=== PATIENT | male | born 1945 | race Hispanic/Latino ===

== ENCOUNTER 2017-04-21 11:22 | Observation (INO) | payer MEDICARE, MEDICAID ==
--- NOTE | 2017-04-21 12:27 | C.PDOC ---
History Of Present Illness 71 y/o male with PMHx of Arthritis, Peripheral Neuropathy, BPH, pedal edema, possible sleep apnea and Glaucoma presents to ED with complaint of left lateral rib pain, left elbow pain and bilateral legs swelling for x1 week. Patient states 1 week ago he was sitting on chair and fell asleep and fell landing on left side of body. Patient has been sleeping on chair ever since then because when lying down on bed pain on left side of body is worse but has now seen pedal edema worsen. His legs have really ballooned in size this past one week as a result of sleeping upright in chair. Also c/o dyspnea on exertion. Patient believes he may have sleep apnea. Patient denies Trauma, RAMIREZ, LOC or any other complaints at this time. PMD: Dr. 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 Constitutional: Negative for: Fever Eyes: Negative for: Vision Change Cardiovascular: Negative for: Chest Pain Respiratory: Negative for: Shortness of Breath Gastrointestinal: Negative for: Nausea, Vomiting, Diarrhea Musculoskeletal: Positive for: Arm Pain, Leg Pain Skin: Positive for: Bruising. Negative for: Rash Neurological: Negative for: Weakness, Headache, Dizziness Physical Exam - Physical Exam Appears: Non-toxic, No Acute Distress Skin: Normal Color, Warm Head: Atraumatic, Normacephalic Eye(s): bilateral: Normal Inspection Ear(s): Bilateral: Normal Nose: Normal Oral Mucosa: Moist Throat: Normal Neck: Normal ROM Lymphatic: Deferred Chest: Tenderness (left lateral ribs) Cardiovascular: Rhythm Regular Respiratory: Decreased Breath Sounds (At base), No Rales, No Rhonchi, No Wheezing Gastrointestinal/Abdominal: Normal Exam, Soft, No Tenderness Rectal: Deferred Back: Normal Inspection Extremity: Pedal Edema (Bilateral (pitting)), Swelling (Bilateral Legs), Other ( 20cm Healed scar from previous accident on left leg ) Pulses: Left Dorsalis Pedis: Normal, Right Dorsalis Pedis: Normal Neurological/Psych: Oriented x3, Normal Speech, Normal Motor, Normal Sensation, Normal Reflexes ED Course And Treatment - Laboratory Results Result Diagrams: 04/21/17 13:15 04/21/17 13:15 O2 Sat by Pulse Oximetry: 96 (RA) Pulse Ox Interpretation: Normal Medical Decision Making Medical Decision Making: Impression: Fall, Ribs Fx, acute exacerbation of chronic leg swelling due to sleeping in chair Plan: 1. Blood Work 2. Left Ribs x-ray 2:20 PM--I discussed case with Dr. Jose Manuel Fisher. Because pt w/ dyspnea on exertion and worsening leg swelling and difficulty ambulating, will hospitalize on observation service. Disposition - Disposition Disposition: HOSPITALIZED Disposition Time: 14:18 Condition: FAIR - Clinical Impression Clinical Impression: Dyspnea on exertion, Edema of both lower legs due to peripheral venous insufficiency, Fall, Contusion of rib on left side, Balance problem, Urinary tract infection - Scribe Statement The provider has reviewed the documentation as recorded by the Sheibnahid Bates All medical record entries made by the Sheibnahid were at my direction and personally dictated by me. I have reviewed the chart and agree that the record accurately reflects my personal performance of the history, physical exam, medical decision making, and the department course for this patient. I have also personally directed, reviewed, and agree with the discharge instructions and disposition. Decision To Admit - Pt Status Changed To: Hospital Disposition Of: Observation - . Bed Request Type: Regular Admitting Physician: Jose Manuel Fisher Patient Diagnosis: Dyspnea on exertion, Edema of both lower legs due to peripheral venous insufficiency, Fall, Contusion of rib on left side, Balance problem, Urinary tract infection
[2017-04-21 13:20] LABS: BASO # 0.1 K/uL (0.0-0.2); BASO % 1.7 % (0.0-2.0); EOS # 0.5 K/uL (0.0-0.7); EOS % 6.3 % (0.0-4.0); LYMPH # 1.6 K/uL (1.0-4.3); LYMPH % 22.3 % (20.0-40.0); MEAN CORPUSCULAR HEMOGLOBIN 21.7 pg (27.0-31.0); MEAN CORPUSCULAR HGB CONC 31.5 g/dL (33.0-37.0); MEAN PLATELET VOLUME 9.3 fL (7.2-11.7); MONO # 0.5 K/uL (0.0-0.8); NRBC % 0.1 % (0.0-2.0); RED CELL DISTRIBUTION WIDTH 17.6 % (11.5-14.5); WHITE BLOOD COUNT 7.3 K/uL (4.8-10.8)
[2017-04-21 13:31] LABS: CHLORIDE 99 mmol/L (98-107); SODIUM 138 mmol/L (132-148)
[2017-04-21 13:32] LABS: POTASSIUM 4.9 mmol/L (3.6-5.2)
[2017-04-21 13:34] LABS: ALB/GLOB RATIO 0.9 (1.0-2.1); ALKALINE PHOSPHATASE 93 U/L (38-126); ALT/SGPT 54 U/L (21-72); AST/SGOT 58 U/L (17-59); BLOOD UREA NITROGEN 22 mg/dL (9-20); CALCIUM 9.1 mg/dl (8.6-10.4); CARBON DIOXIDE 26 mmol/L (22-30); GFR AFRICAN-AMERICAN > 60; GLUCOSE,RANDOM 88 mg/dL (75-110); MEAN CELL VOLUME 68.7 fL (80.0-94.0); TOTAL PROTEIN 8.6 g/dL (6.3-8.3)
[2017-04-21 14:26] LABS: RBC URINE 82 /hpf (0-3); URINE BACTERIA RARE (<OCC); URINE BILIRUBIN NEGATIVE (NEGATIVE); URINE BLOOD 3+ (NEGATIVE); URINE COLOR Yellow (YELLOW); URINE GLUCOSE (UA) NORMAL (Normal); URINE KETONE NEGATIVE (NEGATIVE); URINE LEUKOCYTE ESTERASE 3+ Leu/uL (Negative); URINE PROTEIN NEGATIVE (NEGATIVE); URINE UROBILINOGEN NORMAL mg/dL (0.2-1.0); WBC CLUMPS FEW /hpf; WBC URINE 652 /hpf (0-5)
[2017-04-21] MEDS ORDERED: cefTRIAXone IV 1 gm in Dextros 50 ML IV STA (14:32)
--- NOTE | 2017-04-21 15:20 | RAD ---
PROCEDURE: Radiographs of the Chest and Left Ribs. HISTORY: Fell/landed on left lat chest; rib pain COMPARISON: None available. TECHNIQUE: Frontal radiograph of the chest and multiple oblique radiographs of the left ribs were obtained. FINDINGS: LEFT RIBS: No fracture or focal lesion visualized. LUNGS: Clear. PLEURA: No pneumothorax or pleural fluid. CARDIOVASCULAR: Normal sized heart. No pulmonary vascular congestion. OTHER FINDINGS: None. IMPRESSION: Unremarkable radiographs of the chest and left ribs. No left rib fracture.
--- NOTE | 2017-04-21 15:27 | RAD ---
PROCEDURE: Radiographs of the pelvis. HISTORY: Fell and landed on left side of body COMPARISON: None. FINDINGS: BONES: Pelvic Bones: The 2 horizontal screws through the mid sacrum the frontal view and a diagonal left screw is similar to lumbar spine appearance of 05/16/2014 apparently transfixing a prior sacral fracture. Prominent left inferior iliac spurring borders the left diagonal screw Lumbosacral transitional elements - sacralized right lateral L5 transverse process) is re- suggested. Osseous hypertrophic changes at this lumbosacral and left sacroiliac joint are re- suggested Hips: Bilateral superolateral hip joint space narrowing with mild superolateral acetabular spurring and tiny subchondral cystic changes here. No fracture or dislocation JOINTS: Sacroiliac Joints: As above Pubic Symphysis: Minimal sclerotic changes OTHER FINDINGS: Bilateral hemipelvic phleboliths IMPRESSION: Postop changes projecting of the sacrum and left iliac bone similar to the lumbar spine 2014 study. Bilateral hip osteoarthrosis. No hip fracture appreciated Other findings as above
--- NOTE | 2017-04-21 15:28 | RAD ---
PROCEDURE: Radiographs of the left elbow. HISTORY: Fell and landed on left elbow COMPARISON: No prior. FINDINGS: BONES: No fracture seen although the anterior fat pad is noted. Does not appear particularly lifted para JOINTS: Normal. No osteoarthritis. SOFT TISSUES: Posterior soft tissue swelling elbow on posterior forearm with subcutaneous reticulated edema JOINT EFFUSION: None. OTHER FINDINGS: None IMPRESSION: No fracture or dislocation. Posterior elbow proximal forearm soft tissue swelling as above
--- NOTE | 2017-04-21 15:34 | RAD ---
HISTORY: Fell and landed on left lat chest COMPARISON: 08/31/2016 TECHNIQUE: Chest PA and lateral FINDINGS: LUNGS: Linear scar/ atelectasis at both lung bases. No acute infiltrate. PLEURA: No significant pleural effusion identified. No pneumothorax apparent. CARDIOVASCULAR: Normal. OSSEOUS STRUCTURES: No significant abnormalities. VISUALIZED UPPER ABDOMEN: Normal. OTHER FINDINGS: None. IMPRESSION: No acute infiltrate.
[2017-04-21] MEDS ORDERED: cefTRIAXone IV 1 gm in Dextros 50 ML IVPB ONE (15:47)
--- NOTE | 2017-04-21 19:56 | CARD ---
APPROVED REPORT EKG Measurement Heart [id number] <Conclusion> Normal sinus rhythm Left axis deviation Voltage criteria for left ventricular hypertrophy Abnormal ECG
[2017-04-21 20:19] VITALS: RESP 20
[2017-04-21 20:24] LABS: INR 1.2
--- NOTE | 2017-04-21 23:52 | CP.PCM.HP ---
History of Present Illness - History of Present Illness History of Present Illness: cc: pain at chest from fall, increasing swelling of lower extremities, inability to care for self since the fall 71 y/o male with PMHx of increasing shortness of breath, HTN, arthritis, peripheral neuropathy, BPH, pedal edema, possible sleep apnea, presbycusis and glaucoma presents to ED with complaint of painful left lateral ribs, left elbow pain and bilateral leg swelling for x 1 week. Symptoms all started when he fell from the chair he was sitting on after he fell asleep, landing on left side of his body. Pt already had difficulty moving around and since the fall, developed increasing pedal edema. Pt is unable to cook for himself, and relies mainly on Meals on Wheels, which did not help when his legs ballooned and continued to increase in girth with each passing day. Pt emailed me from home on Tuesday night , and I advised him via the same medium to go to the ER, or at least have an outpatient CXR to determine any occult fx to his bones. Patient denied external trauma, headaches that were persistent or increased in strength over time. He also denied loss of consciousness at any time during the fall. , nor LOC at any time duiring the fall. Pt also denies any change in his bowel constitution, headaches, kA, LOC or any other complaints at this time. aside from a slightly throbbing area on the medial side of the left trapezius. I received missives from pt via email almost everyday, but inasmuch as he was unable to care for himself, I started the conversation on possible sub-acute rehab placement until he gets on his feet. Pt agreed to this approach, until h bisenefits are consumed or are enough for him to run away from her family. Present on Admission - Present on Admission Any Indicators Present on Admission: No History of DVT/PE: No History of Uncontrolled Diabetes: No Urinary Catheter: No Decubitus Ulcer Present: No History Surgical Site Infection Following: Orthopedic Procedures, None Review of Systems - Review of Systems Systems not reviewed;Unavailable: Dementia, Altered Mental Status - Constitutional Constitutional: Excessive Sweating, Fatigue, Frequent Falls, Headache, Snoring, Sleep Apnea, Weight Gain, Weakness - EENT Eyes: Blind Spots, Blurred Vision, Decreased Night Vision, Discharge, Itchy Eyes , Photophobia, Spots in Vision, Loss of Vision Ears: Ear Pain, Tinnitus Nose/Mouth/Throat: Nasal Congestion, Nasal Discharge, Nasal Obstruction, Sinus Pressure, Dry Mouth, Halitosis, Hoarsness, Sore Throat - Cardiovascular Cardiovascular: Dyspnea on Exertion, Edema, Leg Edema, Lightheadedness, Palpitations - Respiratory Respiratory: Dyspnea, Dyspnea on Exertion, Wheezing, Snoring, Chest Congestion, Excessive Mucous Production, Pain with Coughing - Genitourinary Genitourinary: absent: As Per HPI, Change in Urinary Stream, Difficulty Urinating, Dysuria, Flank Pain, Hematuria, Pyuria, Nocturia, Urinary Incontinence, Urinary Frequency, Urinary Hesitance, Urinary Urgency, Voiding Freq/Small Amts, Freq UTI, Hx Renal/Bladder Calculi, Hx /Renal Surgery, Bladder Distension, Other - Reproductive: Male Reproductive:Male: As Per HPI Additional comments: no abnormalities seen - Musculoskeletal Musculoskeletal: Abnormal Gait, Arthralgias, Joint Swelling, Limited Range of Motion, Muscle Weakness, Myalgias - Integumentary Integumentary: absent: As Per HPI, Acne, Alopecia, Bleeding Lesions, Change in Hair, Change in Nails, Change in Pigmentation, Changing Lesions, Dry Skin, Erythema, Furuncle, Hirsutism, Lesions, New Lesions, Non-Healing Lesions, Photosensitivity, Pruritus, Rash, Skin Pain, Skin Ulcer, Sores, Striae, Swelling , Unusual Bruising, Wounds, Jaundice, Other - Neurological Neurological: Abnormal Hearing, Frequent Falls, Headaches, Loss of Vision, Memory Loss - Psychiatric Psychiatric: Confusion, Depression, Difficulty Concentrating - Endocrine Endocrine: Heat Intolorance, Increase in Ring/Shoe/Hat Size, Palpitations Past Patient History - Infectious Disease Hx of Infectious Diseases: None - Past Medical History & Family History Past Medical History?: Yes - Past Social History Smoking Status: Never Smoked Chewing Tobacco Use: No Cigar Use: No Alcohol: None Drugs: Denies Home Situation {Lives}: Alone Domestic Violence: Negative - CARDIAC Hx Cardiac Disorders: Yes Hx Congestive Heart Failure: Yes Hx Hypercholesterolemia: Yes Hx Hypertension: Yes - PULMONARY Hx Respiratory Disorders: Yes Hx Bronchitis: Yes Hx Chronic Obstructive Pulmonary Disease (COPD): Yes Hx Emphysema: Yes Hx Sleep Apnea: Yes - NEUROLOGICAL Hx Neurological Disorder: Yes Hx Alzheimer's Disease: Yes Hx Dementia: Yes - HEENT Hx HEENT Problems: Yes Hx Deafness: Yes - RENAL Hx Chronic Kidney Disease: No - ENDOCRINE/METABOLIC Hx Endocrine Disorders: Yes Hx Hypothyroidism: Yes - HEMATOLOGICAL/ONCOLOGICAL Hx Blood Disorders: Yes Hx Anemia: Yes (2ndry to thalasemmia minor) - INTEGUMENTARY Hx Dermatological Problems: No - MUSCULOSKELETAL/RHEUMATOLOGICAL Hx Musculoskeletal Disorders: Yes Hx Falls: Yes - GASTROINTESTINAL Hx Gastrointestinal Disorders: No - GENITOURINARY/GYNECOLOGICAL Hx Genitourinary Disorders: No - PSYCHIATRIC Hx Psychophysiologic Disorder: No Hx Substance Use: No - SURGICAL HISTORY Hx Surgeries: Yes Hx Cholecystectomy: Yes Hx Tonsillectomy: Yes - ANESTHESIA Hx Anesthesia: Yes Hx Anesthesia Reactions: No Meds Allergies/Adverse Reactions: Allergies Allergy/AdvReac Type Severity Reaction Status Date / Time No Known Allergies Allergy Verified 04/21/17 11:33 Physical Exam - Constitutional Appears: No Acute Distress, Confused, Chronically Ill - Head Exam Head Exam: ATRAUMATIC, NORMAL INSPECTION, NORMOCEPHALIC - Eye Exam Eye Exam: Conjunctival injection, Periorbital swelling, Periorbital tenderness, PERRL, Scleral icterus Pupil Exam: NORMAL ACCOMODATION, PERRL - Cardiovascular Exam Cardiovascular Exam: REGULAR RHYTHM, +S1, +S2 - GI/Abdominal Exam GI & Abdominal Exam: Diminished Bowel Sounds, Hypoactive Bowel Sounds, Normal Bowel Sounds, Soft - Rectal Exam Rectal Exam: Deferred - Neurological Exam Neurological exam: Abnormal Gait, CN II-XII Intact, Oriented x3, Reflexes Normal - Psychiatric Exam Psychiatric exam: Anxious, Normal Affect, Normal Mood - Skin Skin Exam: Dry, Intact, Warm Results - Vital Signs Recent Vital Signs: Last Vital Signs Temp 98.0 F 04/21/17 21:00 Pulse 70 04/21/17 21:00 Resp 20 04/21/17 21:00 BP 148/80 04/21/17 21:00 Pulse Ox 95 04/21/17 21:00 - Labs Result Diagrams: 04/22/17 08:04 04/22/17 08:04 Labs: Laboratory Results - last 24 hr 04/21/17 20:08 PT 13.7 H INR 1.2 APTT 33 - EKG Data EKG Interpreted by: Myself EKG shows normal: Sinus rhythm, Dorena (+ LAD) Rate: Normal - EKG Data When Compared to Previous EKG: No Significant Change Interpretation: Acute Conduction Defect, Acute Chamber Hypertrophy Assessment & Plan (1) Balance problem Assessment and Plan: PT and OT evaluation relative to pt's contusion from fall Status: Acute (2) CHF, chronic Assessment and Plan: pro bnp normal, no cxr finding of chf Status: Resolved (3) Contusion of rib on left side Assessment and Plan: psin control to achieve independence Status: Acute (4) Edema of both lower legs due to peripheral venous insufficiency Assessment and Plan: diuresis, with add'l factor of immobility highly contributing to pt's condition Status: Acute (5) Fall Assessment and Plan: pt appears to be overmedicating himself at home Status: Acute (6) Urinary tract infection Status: Acute
[2017-04-22] MEDS: Albuterol 0.083% Inhal Sol (2.5 mg/3 mL) UD INH SCH ×4 (01:00→20:13)
[2017-04-22 08:12] LABS: BASO % 0.7 % (0.0-2.0); EOS # 0.5 K/uL (0.0-0.7); EOS % 6.7 % (0.0-4.0); HEMATOCRIT 35.5 % (35.0-51.0); LYMPH # 1.3 K/uL (1.0-4.3); LYMPH % 18.2 % (20.0-40.0); MEAN CELL VOLUME 69.5 fL (80.0-94.0); MEAN CORPUSCULAR HEMOGLOBIN 21.5 pg (27.0-31.0); MEAN CORPUSCULAR HGB CONC 30.9 g/dL (33.0-37.0); MEAN PLATELET VOLUME 9.4 fL (7.2-11.7); MONO # 0.4 K/uL (0.0-0.8); MONO % 6.1 % (0.0-10.0); NRBC % 0.1 % (0.0-2.0); RED CELL DISTRIBUTION WIDTH 17.6 % (11.5-14.5); WHITE BLOOD COUNT 7.2 K/uL (4.8-10.8)
[2017-04-22 08:27] LABS: CHLORIDE 103 mmol/L (98-107); POTASSIUM 3.8 mmol/L (3.6-5.2); SODIUM 141 mmol/L (132-148)
[2017-04-22 08:29] LABS: AST/SGOT 37 U/L (17-59); BILIRUBIN,TOTAL 0.9 mg/dL (0.2-1.3); CARBON DIOXIDE 28 mmol/L (22-30); GFR AFRICAN-AMERICAN > 60
[2017-04-22 08:30] LABS: ALKALINE PHOSPHATASE 79 U/L (38-126); ALT/SGPT 46 U/L (21-72); BLOOD UREA NITROGEN 21 mg/dL (9-20); CALCIUM 8.8 mg/dl (8.6-10.4); GLUCOSE,RANDOM 116 mg/dL (75-110); PHOSPHOROUS 3.8 mg/dL (2.5-4.5); TOTAL PROTEIN 7.3 g/dL (6.3-8.3)
[2017-04-22] MEDS: Potassium Chloride 20 mEq ER Tab PO SCH (09:40)
[2017-04-22] MEDS ORDERED: Tramadol 25 mg PO PRN (18:05)
--- NOTE | 2017-04-22 20:56 | CP.PCM.PN ---
Subjective - Date & Time of Evaluation Date of Evaluation: 04/22/17 Time of Evaluation: 20:55 - Subjective Subjective: Pt seen and examined at bedside. Pt had been wanting to go home today and says he feels bettter. Pt had lost about 6 lbs since yesterday and is feeling better. PT and OT consult helped teach pt how he should handle the movements in and out of bed and around the apartment so that he did not cause himself as much pain. > Discussed with pt that it would be best for him if he went to subacute rehab for a couple of week, especially since he does not cook for himself and is unable to control salt intake bec he has to depend on Meals on Wheels. But pt says he would recovere better at home with home PT. I told pt he needed more than home PT since he is ambulatory and has not been bedridden at hospital, ne needs more extensive therapy. Discussed plan to do outpatient therapy at a facility near his building. Objective - Vital Signs/Intake and Output Vital Signs (last 24 hours): Temp Pulse Resp BP Pulse Ox 98.2 F 84 20 144/75 94 L 04/22/17 15:00 04/22/17 15:00 04/22/17 15:00 04/22/17 15:01 04/22/17 15:00 Intake and Output: 04/22/17 04/23/17 18:59 06:59 Intake Total 340 Output Total 1000 Balance -660 - Medications Medications: Current Medications Albuterol Sulfate (Albuterol 0.083% Inhal [place] (2.5 Mg/3 Ml) Ud) 2.5 mg INH RQ6 SHAKEEL Last Admin: 04/22/17 20:13 Dose: 2.5 mg Ascorbic Acid (Vitamin C 500 Mg Tab) 500 mg PO DAILY SHAKE[facility] Donepezil HCl (Aricept) 10 mg PO DAILY SHAKEEL Last Admin: 04/22/17 18:07 Dose: 10 mg Finasteride (Proscar) 5 mg PO DAILY SHAKE[facility] Furosemide (Lasix) 40 mg IVP DAILY SHAKEEL Stop: 04/24/17 10:01 Last Admin: 04/22/17 09:40 Dose: 40 mg Gabapentin (Neurontin) 600 mg PO BID SHAKEEL Last Admin: 04/22/17 18:05 Dose: 600 mg Heparin Sodium (Porcine) (Heparin) 5,000 units SC Q12 SHAKEEL Last Admin: 04/22/17 09:36 Dose: 5,000 units Home Med (Ropinirole [Requip]) 2 mg PO DAILY [facility] Latanoprost (Xalatan Opht) 0 ml OD HS [facility] Naproxen (Anaprox) 275 mg PO Q8 [facility] Potassium Chloride (K-Dur 20 Meq Er Tab) 20 meq PO DAILY [facility] Last Admin: 04/22/17 09:40 Dose: 20 meq Tamsulosin HCl (Flomax) 0.4 mg PO DAILY [facility] Tramadol HCl (Ultram) 25 mg PO Q6 PRN PRN Reason: Sedation - Labs Labs: 04/22/17 08:04 04/22/17 08:04 PT 13.7 SECONDS (9.7-12.2) H 04/21/17 20:08 INR 1.2 04/21/17 20:08 APTT 33 SECONDS (21-34) 04/21/17 20:08 - Constitutional Appears: No Acute Distress - Head Exam Head Exam: NORMAL INSPECTION - Eye Exam Eye Exam: Normal appearance - ENT Exam ENT Exam: Normal Exam - Neck Exam Neck Exam: Normal Inspection - Respiratory Exam Respiratory Exam: Clear to Ausculation Bilateral - Cardiovascular Exam Cardiovascular Exam: REGULAR RHYTHM - GI/Abdominal Exam GI & Abdominal Exam: Distended, Soft - Rectal Exam Rectal Exam: Deferred - Back Exam Additional comments: + edema, non-pitting - Neurological Exam Neurological Exam: Alert, CN II-XII Intact, Normal Gait, Oriented x3, Reflexes Normal Neuro motor strength exam: Left Upper Extremity: 3, Right Upper Extremity: 3, Left Lower Extremity: 3, Right Lower Extremity: 3 - Psychiatric Exam Psychiatric exam: Normal Affect, Normal Mood - Skin Skin Exam: Dry, Intact, Normal Color, Warm Assessment and Plan (1) Balance problem Status: Acute (2) Contusion of rib on left side Assessment & Plan: 2ndry to rapid weight gain 2ndry to immobility Status: Acute (3) Edema of both lower legs due to peripheral venous insufficiency Assessment & Plan: taped up chest to minimize movevment Status: Chronic (4) Fall Assessment & Plan: explained to pt cause of edema, happy with his diuresis, continue Status: Acute (5) Urinary tract infection Assessment & Plan: UA nd culture repeat ordered Status: Acute
[2017-04-22] MEDS ORDERED: Latanoprost 2.5 ml Opht Soln OD SCH (22:00)
[2017-04-22] MEDS: Naproxen 275 mg Tab PO SCH (23:09)
[2017-04-23 00:17] VITALS: O2SAT 96
[2017-04-23] MEDS: Albuterol 0.083% Inhal Sol (2.5 mg/3 mL) UD INH SCH ×3 (01:32→13:23)
[2017-04-23] MEDS: Naproxen 275 mg Tab PO SCH (05:35)
[2017-04-23 07:25] LABS: HEMATOCRIT 34.1 % (35.0-51.0); MEAN CELL VOLUME 68.9 fL (80.0-94.0); MEAN CORPUSCULAR HEMOGLOBIN 21.5 pg (27.0-31.0); MEAN CORPUSCULAR HGB CONC 31.2 g/dL (33.0-37.0); MEAN PLATELET VOLUME 9.5 fL (7.2-11.7); RED CELL DISTRIBUTION WIDTH 17.3 % (11.5-14.5); WHITE BLOOD COUNT 5.9 K/uL (4.8-10.8)
[2017-04-23 07:33] LABS: CHLORIDE 103 mmol/L (98-107); POTASSIUM 3.7 mmol/L (3.6-5.2); SODIUM 140 mmol/L (132-148)
[2017-04-23 07:35] LABS: GFR AFRICAN-AMERICAN > 60
[2017-04-23 07:36] LABS: BLOOD UREA NITROGEN 19 mg/dL (9-20); CALCIUM 8.7 mg/dl (8.6-10.4); CARBON DIOXIDE 27 mmol/L (22-30); GLUCOSE,RANDOM 103 mg/dL (75-110)
[2017-04-23 07:37] VITALS: BP 127/72; PULSE 63; TEMP 98.3
[2017-04-23] MEDS ORDERED: ROPINIROLE 2 MG PO SCH (10:00)
[2017-04-23] MEDS: Potassium Chloride 20 mEq ER Tab PO SCH (10:32)
--- NOTE | 2017-04-23 10:45 | VASCLAB ---
PROCEDURE: Left Lower Extremity Venous Duplex Exam. HISTORY: LLE swelling; r/o DVT PRIORS: None. TECHNIQUE: Left common femoral, femoral, popliteal and posterior tibial, peroneal and great saphenous veins were evaluated. Flow was assessed with color Doppler, compressibility, assessment of phasic flow and augmentation response. Report prepared by LOR Feldman, RVT FINDINGS: LEFT: 1. Common Femoral Vein: 1.1. Compressibility - Fully compressible: Thrombus - None : Flow - Phasic: Augmentation -Normal: Reflux - None. 2. Femoral Vein: 2.1. Compressibility - Fully compressible: Thrombus - None: Flow - Phasic: Augmentation -Normal: Reflux - None. 3. Popliteal Vein: 3.1. Compressibility - Fully compressible: Thrombus - None: Flow - Phasic: Augmentation -Normal: Reflux - None. 4. Posterior Tibial Vein: 4.1. Compressibility - Fully compressible: Thrombus - None: Flow - Phasic: Augmentation -Normal: Reflux - None. 5. Peroneal Vein: 5.1. Compressibility - Fully compressible: Thrombus - None: Flow - Phasic: Augmentation -Normal: Reflux - None. 6. Great Saphenous Vein: 6.1. Compressibility - Fully compressible: Thrombus - None: Flow - Phasic: Augmentation - Normal: Reflux - None. OTHER FINDINGS: IMPRESSION: No evidence of deep or superficial vein thrombosis of the left lower extremity with excellent venous flow. Normal valve function noted of the left side. Normal venous flow noted in the right common femoral vein.
--- NOTE | 2017-04-23 12:17 | CP.PCM.DIS ---
Provider - Provider Date of Admission: 04/21/17 14:22 Attending physician: Jose Manuel Fisher MD Primary care physician: Dr. Jose Manuel Fisher Consults: none Time Spent in preparation of Discharge (in minutes): 30 Diagnosis - Discharge Diagnosis (1) Balance problem Status: Acute (2) Contusion of rib on left side Status: Acute (3) Edema of both lower legs due to peripheral venous insufficiency Status: Chronic (4) Fall Status: Acute (5) Urinary tract infection Status: Acute Hospital Course - Lab Results Lab Results: Most Recent Lab Values WBC 5.9 K/uL (4.8-10.8) 04/23/17 07:15 RBC 4.94 Mil/uL (4.40-5.90) 04/23/17 07:15 Hgb 10.6 g/dL (12.0-18.0) L 04/23/17 07:15 Hct 34.1 % (35.0-51.0) L 04/23/17 07:15 MCV 68.9 fL (80.0-94.0) L 04/23/17 07:15 MCH 21.5 pg (27.0-31.0) L 04/23/17 07:15 MCHC 31.2 g/dL (33.0-37.0) L 04/23/17 07:15 RDW 17.3 % (11.5-14.5) H 04/23/17 07:15 Plt Count 126 K/uL (130-400) L 04/23/17 07:15 MPV 9.5 fL (7.2-11.7) 04/23/17 07:15 Neut % (Auto) 68.3 % (50.0-75.0) 04/22/17 08:04 Lymph % (Auto) 18.2 % (20.0-40.0) L 04/22/17 08:04 Cecil % (Auto) 6.1 % (0.0-10.0) 04/22/17 08:04 Eos % (Auto) 6.7 % (0.0-4.0) H 04/22/17 08:04 Baso % (Auto) 0.7 % (0.0-2.0) 04/22/17 08:04 Neut # 4.9 K/uL (1.8-7.0) 04/22/17 08:04 Lymph # 1.3 K/uL (1.0-4.3) 04/22/17 08:04 Cecil # 0.4 K/uL (0.0-0.8) 04/22/17 08:04 Eos # 0.5 K/uL (0.0-0.7) 04/22/17 08:04 Baso # 0.0 K/uL (0.0-0.2) 04/22/17 08:04 Differential Comment 04/21/17 13:15 PT 13.7 SECONDS (9.7-12.2) H 04/21/17 20:08 INR 1.2 04/21/17 20:08 APTT 33 SECONDS (21-34) 04/21/17 20:08 Sodium 140 mmol/L (132-148) 04/23/17 07:11 Potassium 3.7 mmol/L (3.6-5.2) 04/23/17 07:11 Chloride 103 mmol/L (98-107) 04/23/17 07:11 Carbon Dioxide 27 mmol/L (22-30) 04/23/17 07:11 Anion Gap 14 (10-20) 04/23/17 07:11 BUN 19 mg/dL (9-20) 04/23/17 07:11 Creatinine 0.9 MG/DL (0.8-1.5) 04/23/17 07:11 Est GFR ( Amer) > 60 04/23/17 07:11 Est GFR (Non-Af Amer) > 60 04/23/17 07:11 Random Glucose 103 mg/dL (75-110) 04/23/17 07:11 Serum Osmolality 298 mosm/kg (272-300) 04/22/17 08:04 Calcium 8.7 mg/dl (8.6-10.4) 04/23/17 07:11 Phosphorus 3.8 mg/dL (2.5-4.5) 04/22/17 08:04 Magnesium 2.0 mg/dL (1.6-2.3) 04/22/17 08:04 Total Bilirubin 0.9 mg/dL (0.2-1.3) 04/22/17 08:04 AST 37 U/L (17-59) 04/22/17 08:04 ALT 46 U/L (21-72) 04/22/17 08:04 Alkaline Phosphatase 79 U/L (38-126) 04/22/17 08:04 Total Creatine Kinase 272 U/L (55-170) H 04/21/17 13:15 Troponin I < 0.0120 ng/mL (0.00-0.120) 04/21/17 13:15 NT-Pro-B Natriuret Pep 181 pg/mL (0-900) 04/22/17 08:04 Total Protein 7.3 g/dL (6.3-8.3) 04/22/17 08:04 Albumin 3.6 g/dL (3.5-5.0) 04/22/17 08:04 Globulin 3.6 gm/dL (2.2-3.9) 04/22/17 08:04 Albumin/Globulin Ratio 1.0 (1.0-2.1) 04/22/17 08:04 Urine Color Yellow (YELLOW) 04/21/17 14:06 Urine Clarity Hazy (Clear) 04/21/17 14:06 Urine pH 6.0 (5.0-8.0) 04/21/17 14:06 Ur Specific [place] 1.011 (1.003-1.030) 04/21/17 14:06 Urine Protein Negative mg/dL (NEGATIVE) 04/21/17 14:06 Urine Glucose (UA) Normal mg/dL (Normal) 04/21/17 14:06 Urine Ketones Negative mg/dL (NEGATIVE) 04/21/17 14:06 Urine Blood 3+ (NEGATIVE) H 04/21/17 14:06 Urine Nitrate Negative (NEGATIVE) 04/21/17 14:06 Urine Bilirubin Negative (NEGATIVE) 04/21/17 14:06 Urine Urobilinogen Normal mg/dL (0.2-1.0) 04/21/17 14:06 Ur Leukocyte Esterase 3+ Adelina/uL (Negative) H 04/21/17 14:06 Urine WBC (Auto) 652 /hpf (0-5) H 04/21/17 14:06 Urine RBC (Auto) 82 /hpf (0-3) H 04/21/17 14:06 Urine WBC Clumps (Auto) Few /hpf (NONE) H 04/21/17 14:06 Ur Squamous Epith Cells < 1 /hpf (0-5) 04/21/17 14:06 Urine Bacteria Rare (<OCC) 04/21/17 14:06 Urine Osmolality 538 mosm/kg (300-1000) 04/22/17 07:12 Blood Type O POSITIVE 04/21/17 13:42 Antibody Screen Negative 04/21/17 13:42 - Hospital Course Hospital Course: zx Pt had fallen about 1.5 weeks ago and this is going on the 2nd week. Pt had been emailing the office complaining of severe pain on the pain site and wanting an a home health aide to help with things around the apt since he cannot cook. In times of great need such as this, it becomes even more difficult around the house. Pt complained of increasing weight making him unable to wa.k, Emails became almost daily that I asked the pt go to the hospital with the intent of placing him at [facility] to increase his chances of staying independent. Pt refused and reiterated he wanted to go home and maybe he can do physical theapy at home (home PT)/ Only then did he agreeand quiet down some. In the meantime, pt's was diureses of a total of 0 9 liters in 2 daysl, with an improvement in pt's sense of well being. Ok'd for pt to go home today on promise that he will pursue outpt PT. Pt discharged stable and with no SOB. - Date & Time of H&P Date of H&P: 04/23/17 Time of H&P: 12:20 Discharge Exam - Head Exam Head Exam: NORMAL INSPECTION - Eye Exam Eye Exam: Normal appearance Pupil Exam: NORMAL ACCOMODATION - ENT Exam ENT Exam: Normal Exam - Neck Exam Neck exam: Normal Inspection - Respiratory Exam Respiratory Exam: Chest Wall Tenderness, Clear to PA & Lateral, NORMAL BREATHING PATTERN - Cardiovascular Exam Cardiovascular Exam: REGULAR RHYTHM - GI/Abdominal Exam GI & Abdominal Exam: Distended - Rectal Exam Rectal Exam: NORMAL INSPECTION - Extremities Exam Extremities exam: normal capillary refill, pedal edema, pedal pulses present - Back Exam Back exam: NORMAL INSPECTION - Neurological Exam Neurological exam: Oriented x3 - Psychiatric Exam Psychiatric exam: Normal Mood - Skin Skin Exam: Dry, Intact, Normal Color, Warm Discharge Plan - Discharge Medications Prescriptions: Naproxen [Anaprox] 275 mg PO Q8 PRN #100 tab PRN Reason: Pain, Moderate (4-7) Donepezil [Aricept] 10 mg PO DAILY PRN #30 PRN Reason: Headache Gabapentin [Neurontin] 600 mg PO BID #60 tab traMADol [Ultram] 25 mg PO Q6 PRN #30 tab PRN Reason: Pain, Severe (8-10) - Follow Up Plan Condition: FAIR Disposition: HOME/ ROUTINE Additional Instructions: Follow up with Dr. Fisher on April 26, at 1015 am. If unable to make this appt, pls call the office on Tuesday at 10 am to reschedule Clinical Quality Measures - CQM - Stroke Antithrombotic Prescribed: Medical Contraindication Present Contranindication/Reason for not providing: Risk for Falling Anticoagulation Prescribed for Atrial Flutter, Atrial Fibrillation and History of:: Not Applicable - CQM - VTE Did patient receive overlap therapy during hosptialization?: No Is patient being discharged on overlap therapy?: No
== END 2017-04-23 15:30 | disposition home or self-care (01) ==
LOC: C.ER 11:22 → C.9E 14:22 → C.3T 20:04
PROVIDERS: ADMIT Family Medicine; ATTEND Family Medicine
DX: I87.2 Venous insufficiency (chronic) (peripheral) (principal); I11.0 Hypertensive heart disease with heart failure; I50.9 Heart failure, unspecified; N39.0 Urinary tract infection, site not specified; N40.0 Benign prostatic hyperplasia without lower urinary tract symptoms; G30.9 Alzheimer's disease, unspecified; S20.212A Contusion of left front wall of thorax, initial encounter; W07.XXXA Fall from chair, initial encounter; F02.80 Dementia in other diseases classified elsewhere, unspecified severity, without behavioral disturbance, psychotic disturbance, mood disturbance, and anxiety
CPT/HCPCS: 36415; 71020; 71100; 72170; 73080; 80048; 80053; 81001; 82550; 83735; 83880; 83930; 83935; 84100; 84484; 85025; 85027; 85610; 85730; 86850; 86900; 93005; 93971; 94640; 94760; 96360; 96374; 97116; 97162; 97166; 97530; 99285; G0378; G8978; G8979; G8987; G8988; J0696; J1644; J1940

== ENCOUNTER 2017-11-24 11:14 | Observation (INO) | payer MEDICARE, MEDICAID ==
--- NOTE | 2017-11-24 12:05 | C.PDOC ---
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 Upon arrival of EMS, patient was found to be hypoxi with rales, lasix was administered in route with improvements. Denies fever, chills, chest pain, palpitations, nausea , vomiting or headache. 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 Constitutional: Positive for: Weakness. Negative for: Fever, Chills Cardiovascular: Negative for: Chest Pain, Palpitations Respiratory: Positive for: Shortness of Breath Gastrointestinal: Negative for: Nausea, Vomiting Neurological: Positive for: Dizziness. Negative for: Headache Physical Exam - Physical Exam Appears: Non-toxic, No Acute Distress Skin: Warm, Dry, No Rash Eye(s): bilateral: Normal Inspection, PERRL, EOMI Oral Mucosa: Moist Cardiovascular: Rhythm Regular, No Murmur Respiratory: No Rales, No Rhonchi, Other ((+) distant breath sounds, bilateral) Gastrointestinal/Abdominal: Normal Exam, Soft, No Tenderness, No Guarding, No Rebound Extremity: Normal ROM, Other ((+) +2 pitting edema, bilateral) Neurological/Psych: Oriented x3, Normal Speech, Normal Motor ED Course And Treatment - Laboratory Results Result Diagrams: 11/24/17 12:06 11/24/17 12:06 ECG: Interpreted By Me, Viewed By Me ECG Rhythm: Sinus Rhythm Interpretation Of ECG: Left axis deviation. Notmal intervals. No ST/T wave abnormalities. Rate From EC (BPM) O2 Sat by Pulse Oximetry: 97 (RA) Pulse Ox Interpretation: Normal Medical Decision Making Medical Decision Making: IMPRESSION: CHF PLAN: * CXR * EKG * Troponin * CBC * CMP * BNP * Urinalysis NOTE: Disposition Discussed With DrPeg: Jose Manuel Fisher Counseled Patient/Family Regarding: Studies Performed, Diagnosis - Disposition Disposition: HOSPITALIZED Disposition Time: 14:26 Condition: FAIR Forms: [facility] (Greenlandic) - Clinical Impression Clinical Impression: Urinary tract infection, Near syncope - Scribe Statement The provider has reviewed the documentation as recorded by the Alejandra Overton Provider Attestation: All medical record entries made by the Scribe were at my direction and personally dictated by me. I have reviewed the chart and agree that the record accurately reflects my personal performance of the history, physical exam, medical decision making, and the department course for this patient. I have also personally directed, reviewed, and agree with the discharge instructions and disposition.
[2017-11-24 12:11] LABS: BASO # 0.1 K/uL (0.0-0.2); EOS # 0.4 K/uL (0.0-0.7); EOS % 4.6 % (0.0-4.0); HEMOGLOBIN 12.1 g/dL (12.0-18.0); LYMPH # 1.8 K/uL (1.0-4.3); LYMPH % 22.7 % (20.0-40.0); MEAN CELL VOLUME 67.9 fL (80.0-94.0); MEAN CORPUSCULAR HEMOGLOBIN 22.4 pg (27.0-31.0); MEAN CORPUSCULAR HGB CONC 33.1 g/dL (33.0-37.0); MEAN PLATELET VOLUME 9.3 fL (7.2-11.7); MONO # 0.5 K/uL (0.0-0.8); MONO % 6.2 % (0.0-10.0); NEUT # 5.1 K/uL (1.8-7.0); NEUT % 65.5 % (50.0-75.0); NRBC % 0.2 % (0.0-2.0); RBC 5.37 Mil/uL (4.40-5.90); RED CELL DISTRIBUTION WIDTH 17.3 % (11.5-14.5); WHITE BLOOD COUNT 7.8 K/uL (4.8-10.8)
[2017-11-24 12:17] LABS: INR 1.2; PROTHROMBIN TIME 13.2 SECONDS (9.7-12.2)
[2017-11-24 12:18] LABS: SQUAMOUS EPITHIAL < 1 /hpf (0-5); URINE BACTERIA RARE (<OCC); URINE BILIRUBIN NEGATIVE (NEGATIVE); URINE BLOOD 2+ (NEGATIVE); URINE CLARITY Hazy (Clear); URINE COLOR Yellow (YELLOW); URINE GLUCOSE (UA) NORMAL (Normal); URINE LEUKOCYTE ESTERASE 3+ Leu/uL (Negative); URINE NITRATE NEGATIVE (NEGATIVE); URINE PROTEIN NEGATIVE (NEGATIVE); URINE UROBILINOGEN NORMAL mg/dL (0.2-1.0)
[2017-11-24 12:22] LABS: ALB/GLOB RATIO 1.1 (1.0-2.1); ALBUMIN 4.2 g/dL (3.5-5.0); ALT/SGPT 31 U/L (21-72); AST/SGOT 27 U/L (17-59); BLOOD UREA NITROGEN 20 mg/dL (9-20); CALCIUM 8.9 mg/dl (8.6-10.4); GFR AFRICAN-AMERICAN > 60; GFR NON-AFRICAN AMERICAN > 60
[2017-11-24 12:34] LABS: B-TYPE NATRIURETIC PEPTIDE 175 pg/mL (0-900)
--- NOTE | 2017-11-24 15:52 | RAD ---
PROCEDURE: CHEST RADIOGRAPH, 1 VIEW HISTORY: SOB COMPARISON: 04/21/2017 FINDINGS: LUNGS: Shallow lung volumes. A linear coalescent opacities lung base previously referenced -subsegmental atelectasis and/or scarring favored PLEURA: No pneumothorax or pleural fluid seen. CARDIOVASCULAR: Cardiomegaly. Central pulmonary venous minimal congestion probable possibly chronic possibly chronic OSSEOUS STRUCTURES: No significant abnormalities. VISUALIZED UPPER ABDOMEN: Normal. OTHER FINDINGS: None. IMPRESSION: Cardiomegaly and minimal central pulmonary venous congestion possibly chronic. No interval infiltrate. Chronic changes left lung base
--- NOTE | 2017-11-24 20:51 | CARD ---
APPROVED REPORT EKG Measurement Heart [id number] <Conclusion> Normal sinus rhythm Left axis deviation Voltage criteria for left ventricular hypertrophy Abnormal ECG
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
[2017-11-25 07:23] LABS: BLOOD UREA NITROGEN 18 mg/dL (9-20); CALCIUM 8.7 mg/dl (8.6-10.4); GFR AFRICAN-AMERICAN > 60; GFR NON-AFRICAN AMERICAN > 60
[2017-11-25 08:10] LABS: HEMOGLOBIN 11.5 g/dL (12.0-18.0); MEAN CELL VOLUME 68.1 fL (80.0-94.0); MEAN CORPUSCULAR HEMOGLOBIN 22.2 pg (27.0-31.0); MEAN CORPUSCULAR HGB CONC 32.6 g/dL (33.0-37.0); MEAN PLATELET VOLUME 9.6 fL (7.2-11.7); RBC 5.16 Mil/uL (4.40-5.90); RED CELL DISTRIBUTION WIDTH 17.7 % (11.5-14.5); WHITE BLOOD COUNT 6.8 K/uL (4.8-10.8)
[2017-11-25] MEDS: Omega-3-Acid Ethyl Esters 1 GM Cap PO SCH (17:50)
[2017-11-25] MEDS ORDERED: TRAVOPROST RIGHTEYE SCH (18:00)
[2017-11-25] MEDS ORDERED: Latanoprost 2.5 ml Opht Soln OD SCH (22:00)
--- NOTE | 2017-11-26 08:49 | CP.PCM.DIS ---
Provider - Provider Date of Admission: 11/24/17 14:24 Attending physician: Jose Manuel Fisher MD Primary care physician: Dr. Jose Manuel Fisher MD Consults: none Time Spent in preparation of Discharge (in minutes): 30 Diagnosis - Discharge Diagnosis (1) Near syncope Status: Acute Priority: Medium Comment: prob 2ndry to hypotension. no bp meds, no lasix for now (2) Hypotension (arterial) Status: Acute Priority: High Comment: 2ndry to excessive diuresis (3) Fall Status: Acute Priority: High Comment: 2ndry to hypotension Hospital Course - Lab Results Lab Results: Micro Results 11/24/17 14:27 Blood Blood Culture - Preliminary NO GROWTH AFTER 24 HOURS 11/24/17 14:00 Blood Blood Culture - Preliminary NO GROWTH AFTER 24 HOURS 11/24/17 Unknown Urine,Clean Catch Urine Culture - Final No Growth (<1,000 CFU/ML) Most Recent Lab Values WBC 6.8 K/uL (4.8-10.8) 11/25/17 06:56 RBC 5.16 Mil/uL (4.40-5.90) 11/25/17 06:56 Hgb 11.5 g/dL (12.0-18.0) L 11/25/17 06:56 Hct 35.2 % (35.0-51.0) 11/25/17 06:56 MCV 68.1 fL (80.0-94.0) L 11/25/17 06:56 MCH 22.2 pg (27.0-31.0) L 11/25/17 06:56 MCHC 32.6 g/dL (33.0-37.0) L 11/25/17 06:56 RDW 17.7 % (11.5-14.5) H 11/25/17 06:56 Plt Count 118 K/uL (130-400) L 11/25/17 06:56 MPV 9.6 fL (7.2-11.7) 11/25/17 06:56 Neut % (Auto) 65.5 % (50.0-75.0) 11/24/17 12:06 Lymph % (Auto) 22.7 % (20.0-40.0) 11/24/17 12:06 [place] % (Auto) 6.2 % (0.0-10.0) 11/24/17 12:06 Eos % (Auto) 4.6 % (0.0-4.0) H 11/24/17 12:06 Baso % (Auto) 1.0 % (0.0-2.0) 11/24/17 12:06 Neut # 5.1 K/uL (1.8-7.0) 11/24/17 12:06 Lymph # 1.8 K/uL (1.0-4.3) 11/24/17 12:06 [place] # 0.5 K/uL (0.0-0.8) 11/24/17 12:06 Eos # 0.4 K/uL (0.0-0.7) 11/24/17 12:06 Baso # 0.1 K/uL (0.0-0.2) 11/24/17 12:06 Differential Comment 11/25/17 06:56 PT 13.2 SECONDS (9.7-12.2) H 11/24/17 12:06 INR 1.2 11/24/17 12:06 APTT 28 SECONDS (21-34) 11/24/17 12:06 D-Dimer, Quantitative < 200 ng/mlDDU (0-243) 11/24/17 14:03 Sodium 134 mmol/L (132-148) 11/25/17 06:56 Potassium 3.9 mmol/L (3.6-5.2) 11/25/17 06:56 Chloride 98 mmol/L (98-107) 11/25/17 06:56 Carbon Dioxide 28 mmol/L (22-30) 11/25/17 06:56 Anion Gap 12 (10-20) 11/25/17 06:56 BUN 18 mg/dL (9-20) 11/25/17 06:56 Creatinine 0.9 mg/dL (0.8-1.5) 11/25/17 06:56 Est GFR ( Amer) > 60 11/25/17 06:56 Est GFR (Non-Af Amer) > 60 11/25/17 06:56 Random Glucose 89 mg/dL (75-110) 11/25/17 06:56 Calcium 8.7 mg/dl (8.6-10.4) 11/25/17 06:56 Total Bilirubin 0.6 mg/dL (0.2-1.3) 11/24/17 12:06 AST 27 U/L (17-59) 11/24/17 12:06 ALT 31 U/L (21-72) 11/24/17 12:06 Alkaline Phosphatase 75 U/L (38-126) 11/24/17 12:06 Troponin I < 0.0120 ng/mL (0.00-0.120) 11/24/17 12:06 NT-Pro-B Natriuret Pep 175 pg/mL (0-900) 11/24/17 12:06 Total Protein 7.9 g/dL (6.3-8.3) 11/24/17 12:06 Albumin 4.2 g/dL (3.5-5.0) 11/24/17 12:06 Globulin 3.7 gm/dL (2.2-3.9) 11/24/17 12:06 Albumin/Globulin Ratio 1.1 (1.0-2.1) 11/24/17 12:06 Urine Color Yellow (YELLOW) 11/24/17 12:06 Urine Clarity Hazy (Clear) 11/24/17 12:06 Urine pH 6.0 (5.0-8.0) 11/24/17 12:06 Ur Specific [place] 1.005 (1.003-1.030) 11/24/17 12:06 Urine Protein Negative mg/dL (NEGATIVE) 11/24/17 12:06 Urine Glucose (UA) Normal mg/dL (Normal) 11/24/17 12:06 Urine Ketones Negative mg/dL (NEGATIVE) 11/24/17 12:06 Urine Blood 2+ (NEGATIVE) H 11/24/17 12:06 Urine Nitrate Negative (NEGATIVE) 11/24/17 12:06 Urine Bilirubin Negative (NEGATIVE) 11/24/17 12:06 Urine Urobilinogen Normal mg/dL (0.2-1.0) 11/24/17 12:06 Ur Leukocyte Esterase 3+ [place]/uL (Negative) H 11/24/17 12:06 Urine WBC (Auto) 538 /hpf (0-5) H 11/24/17 12:06 Urine RBC (Auto) 43 /hpf (0-3) H 11/24/17 12:06 Ur Squamous Epith Cells < 1 /hpf (0-5) 11/24/17 12:06 Urine Bacteria Rare (<OCC) 11/24/17 12:06 - Hospital Course Hospital Course: Pt admitted for near syncope and suspected UTI. Review of pt's llabs and VS showed low b initially, which remained low despite witholding of aniti- hypertneisve meds. There were no repeat episodes of the symptom that prompted admission - Date & Time of H&P Date of H&P: 11/25/17 Time of H&P: 21:30 Discharge Exam - Head Exam Head Exam: NORMAL INSPECTION, NORMOCEPHALIC - Eye Exam Eye Exam: Normal appearance - ENT Exam ENT Exam: Normal Exam - Neck Exam Neck exam: Normal Inspection - Respiratory Exam Respiratory Exam: NORMAL BREATHING PATTERN - Cardiovascular Exam Cardiovascular Exam: REGULAR RHYTHM - GI/Abdominal Exam GI & Abdominal Exam: Normal Bowel Sounds, Unremarkable - Rectal Exam Rectal Exam: Deferred - Extremities Exam Extremities exam: normal inspection, pedal edema - Neurological Exam Neurological exam: Alert, CN II-XII Intact, Normal Gait, Oriented x3, Reflexes Normal - Skin Skin Exam: Dry, Intact, Normal Color, Warm Discharge Plan - Discharge Medications Prescriptions: Furosemide [Lasix] 1 tab PO DAILY #14 tab - Follow Up Plan Condition: FAIR Disposition: HOME/ ROUTINE Patient education suggested?: Yes Additional Instructions: 1. Follow up at the office on Nov 30 at 12:30 pm 2. Bring all your medicines at home in their respective bottles to the office when you come. 3. Weigh yourself everyday. If you gain 3 lbs in 1 day, take furosemide 20 mg tablet (1/2 of your 40 mg tablet at home) 4. Restrict your fluid intake to 1 liter (1000 mL) of fluids. 5. If you eat foods that are pre-made, count/know the amount of sodium they contain. This may help decrease the feet swelling. 6. If your BP goes above systolic of 180 and/or you have a headache, call the office. Clinical Quality Measures - CQM - Stroke Contranindication/Reason for not providing: Risk for Falling Anticoagulation Prescribed for Atrial Flutter, Atrial Fibrillation and History of:: Medical Contraindication Present Contranindication/Reason for not providing: Risk for Bleeding, Risk for Falling Contraindication/Reason for not providing: LDL less than 70 mg/dL
[2017-11-26] MEDS ORDERED: Influenza Vaccine 60 mcg/0.5 mL SYR (4YR UP) IM ONE (10:00)
[2017-11-26] MEDS: Omega-3-Acid Ethyl Esters 1 GM Cap PO SCH (10:05)
[2017-11-26 13:07] VITALS: PULSE 74
[2017-11-26 15:22] VITALS: BP 118/65; RESP 18; TEMP 98.4; O2SAT 97
== END 2017-11-26 14:21 | disposition home or self-care (01) ==
LOC: C.ER 11:14 → C.9E 14:24 → C.6T 15:51
PROVIDERS: ADMIT Family Medicine; ATTEND Family Medicine
DX: R55 Syncope and collapse (principal); I95.9 Hypotension, unspecified; E03.9 Hypothyroidism, unspecified; E66.9 Obesity, unspecified; Z68.35 Body mass index [BMI] 35.0-35.9, adult; E78.00 Pure hypercholesterolemia, unspecified; F02.80 Dementia in other diseases classified elsewhere, unspecified severity, without behavioral disturbance, psychotic disturbance, mood disturbance, and anxiety; G30.9 Alzheimer's disease, unspecified; G25.81 Restless legs syndrome; G47.30 Sleep apnea, unspecified; G62.9 Polyneuropathy, unspecified; H40.9 Unspecified glaucoma; H91.90 Unspecified hearing loss, unspecified ear; J43.9 Emphysema, unspecified; N40.0 Benign prostatic hyperplasia without lower urinary tract symptoms; W19.XXXA Unspecified fall, initial encounter; Z79.899 Other long term (current) drug therapy; I10 Essential (primary) hypertension
CPT/HCPCS: 36415; 71045; 80048; 80053; 81001; 83880; 84484; 85025; 85027; 85378; 85610; 85730; 87040; 87086; 93005; 97116; 97161; 99285; G0378; G8978; G8979; J1644